=== PATIENT | female | born 1965 | race Hispanic/Latino ===

== ENCOUNTER 2020-10-22 18:35 | Inpatient (IN) | payer OTHER, SELFPAY ==
[2020-10-22 19:05] LABS: #Basophils 0.1 10x3/uL (0.0-0.2); #Eosinphils 0.1 10x3/uL (0.0-0.5); #Monocytes 0.7 10x3/uL (0.0-1.1); %Eosinophils 1.5 % (0.0-6.0); %Lymphocytes 31.9 % (18.0-47.0); %Monocytes 9.2 % (0.0-10.0); %Neutrophils 56.3 % (40.0-75.0); Hemoglobin 14.2 g/dL (12.0-15.5); Mean Corpuscular HGB CONC 33.3 g/dL (32.0-36.0); Mean Corpuscular Hemoglobin 30.7 pg (27.0-33.0); Mean Platelet Volume 9.9 fl (7.4-10.4); Platelet Count 159 10x3/uL (150-450); Red Blood Cell (RBC) Count 4.63 10x6/uL (3.90-5.03); White Blood Cell (WBC) Count 7.1 10x3/uL (3.5-10.5)
[2020-10-22 19:16] LABS: ALT (SGPT) 136 U/L (8-55); AST (SGOT) 209 U/L (5-34); Albumin 3.6 g/dL (3.5-5.0); Alkaline Phosphatase 183 U/L (40-110); Anion Gap 11 mmol/L (10-20); BUN (Urea Nitrogen) 7 mg/dL (9.8-20.1); Bilirubin, Total 0.5 mg/dL (0.2-1.2); CK (CPK) 66 U/L (29-168); Calc. Creatinine Clearance 0 mL/min (70-130); Calcium 9.2 mg/dL (7.8-10.44); Carbon Dioxide 24 mmol/L (22-29); Chloride 104 mmol/L (98-107); Globulin 4.3 g/dL (2.4-3.5); Glucose 165 mg/dL (70-105); Lipase 43 U/L (8-78); Potassium 4.1 mmol/L (3.5-5.1); Protein, Total 7.9 g/dL (6.0-8.3); Sodium 135 mmol/L (136-145)
[2020-10-22] MEDS ORDERED: Acetaminophen 500 MG TAB ONE (19:55)
[2020-10-22] MEDS ORDERED: Dexamethasone 10 MG/ML VIAL ONE (22:10)
[2020-10-22] MEDS ORDERED: Acetaminophen 325 MG TAB PO PRN (22:20)
[2020-10-22] MEDS ORDERED: Dextrose 5% in Water 1,000 ML IV PRN (22:20)
[2020-10-22] MEDS ORDERED: Senokot S 8.6-50 MG TAB PO PRN (22:20)
[2020-10-22] MEDS ORDERED: Guaifenesin DM 100-10/5 ML UDCUP PO PRN (22:20)
[2020-10-22] MEDS ORDERED: Calcium Carbonate 500 MG ChewTAB PO PRN (22:20)
[2020-10-22] MEDS ORDERED: Dextrose 50% Abboject 50 ML SYRINGE SLOW IVP PRN (22:20)
[2020-10-22] MEDS ORDERED: Ondansetron PF 4 MG/2 ML Vial IVP PRN (22:20)
[2020-10-22] MEDS ORDERED: Ventolin HFA Inhaler 60 PUFF INHALER INH PRN (22:28)
[2020-10-23 00:41] VITALS: BMI 33.3
[2020-10-23 06:26] LABS: #Monocytes 0.1 10x3/uL (0.0-1.1); #Neutrophils 4.1 10x3/uL (1.5-8.4); %Basophils 0.5 % (0.0-2.0); %Eosinophils 0.2 % (0.0-6.0); %Lymphocytes 31.2 % (18.0-47.0); %Monocytes 1.5 % (0.0-10.0); %Neutrophils 66.4 % (40.0-75.0); Hemoglobin 14.6 g/dL (12.0-15.5); Mean Corpuscular Hemoglobin 30.8 pg (27.0-33.0); Mean Corpuscular Volume 93.5 fl (81.6-98.3); Mean Platelet Volume 10.5 fl (7.4-10.4); Platelet Count 153 10x3/uL (150-450); Red Blood Cell (RBC) Count 4.74 10x6/uL (3.90-5.03); White Blood Cell (WBC) Count 6.2 10x3/uL (3.5-10.5)
[2020-10-23 06:49] LABS: ALT (SGPT) 155 U/L (8-55); AST (SGOT) 221 U/L (5-34); Albumin 3.6 g/dL (3.5-5.0); Alkaline Phosphatase 182 U/L (40-110); Anion Gap 12 mmol/L (10-20); BUN (Urea Nitrogen) 9 mg/dL (9.8-20.1); Bilirubin, Total 0.5 mg/dL (0.2-1.2); CK (CPK) 53 U/L (29-168); CRP (Inflammatory) 2.07 mg/dL (= or < 0.5); Calc. Creatinine Clearance 120 mL/min (70-130); Calcium 9.1 mg/dL (7.8-10.44); Carbon Dioxide 24 mmol/L (22-29); Cardiac Risk 3.3 (Less than 4.5); Chloride 107 mmol/L (98-107); Cholesterol 152 mg/dl (< 200 Desired); Glucose 188 mg/dL (70-105); HDL Cholesterol 46 mg/dL (>60 Neg Risk); LDL Cholesterol, Calculated 94 mg/dL; Potassium 4.6 mmol/L (3.5-5.1); Protein, Total 8.6 g/dL (6.0-8.3); Sodium 138 mmol/L (136-145); Triglycerides 61 mg/dL (Less than 150)
[2020-10-23] MEDS ORDERED: Zinc Gluconate 50 MG TAB PO SCH (09:00)
[2020-10-23] MEDS ORDERED: Ascorbic Acid 500 mg Chewable Tablet PO SCH (09:00)
[2020-10-23] MEDS ORDERED: Cholecalciferol (Vitamin D3) 400 UNITS TAB PO SCH (09:00)
[2020-10-23] MEDS ORDERED: Enoxaparin Sodium 40 MG/0.4 ML SYRINGE SC SCH (09:00)
[2020-10-23] MEDS: Lisinopril 10 MG TAB PO SCH (09:47)
[2020-10-23] MEDS: Amitriptyline HCl 25 MG TAB PO SCH (09:47)
[2020-10-23] MEDS: Aspirin 81 mg Enteric Coated Tablet PO SCH (09:47)
[2020-10-23] MEDS: PARoxetine 20 MG TAB PO SCH (09:47)
[2020-10-23] MEDS: busPIRone HCl 15 MG TAB PO SCH ×2 (09:47→22:01)
[2020-10-23] MEDS: metFORMIN 500 MG TAB PO SCH ×2 (09:47→17:24)
[2020-10-23 09:58] LABS: Ferritin 363.85 ng/mL (10-291)
[2020-10-23 10:01] LABS: Hep B Surf Ag Non-Reactive S/CO (NonReactive)
[2020-10-23 10:03] LABS: HBSAg Index 0.17 S/CO (0-0.99)
[2020-10-23 11:13] LABS: Hemoglobin A1c 6.7 % (4.0-6.0)
[2020-10-23 15:28] LABS: HBCM Index 0.06 S/CO (0-0.79); Hep A IgM AB Non-Reactive (NonReactive); Hep A IgM S/CO 0.34 S/CO (0-0.79); Hep C IgG Ab Non-Reactive (NonReactive); Hep C Index 0.11 S/CO (0-0.79); Hepatitis B Core IgM Abs Non-Reactive (NonReactive)
[2020-10-23] MEDS: Dexamethasone 4 mg/ml Vial SLOW IVP SCH (22:01)
[2020-10-24] MEDS ORDERED: Calcium Carbonate 500 MG ChewTAB PO PRN (05:38)
[2020-10-24 06:39] LABS: #Monocytes 0.3 10x3/uL (0.0-1.1); #Neutrophils 6.4 10x3/uL (1.5-8.4); %Basophils 0.1 % (0.0-2.0); %Lymphocytes 25.2 % (18.0-47.0); %Monocytes 3.4 % (0.0-10.0); Hemoglobin 13.1 g/dL (12.0-15.5); Mean Corpuscular HGB CONC 32.4 g/dL (32.0-36.0); Mean Corpuscular Hemoglobin 30.2 pg (27.0-33.0); Mean Corpuscular Volume 93.1 fl (81.6-98.3); Mean Platelet Volume 11.1 fl (7.4-10.4); Platelet Count 155 10x3/uL (150-450); Red Blood Cell (RBC) Count 4.34 10x6/uL (3.90-5.03)
[2020-10-24 06:44] LABS: ALT (SGPT) 99 U/L (8-55); AST (SGOT) 96 U/L (5-34); Albumin 3.3 g/dL (3.5-5.0); Alkaline Phosphatase 143 U/L (40-110); Anion Gap 10 mmol/L (10-20); BUN (Urea Nitrogen) 8 mg/dL (9.8-20.1); Bilirubin, Total 0.3 mg/dL (0.2-1.2); Calc. Creatinine Clearance 134 mL/min (70-130); Calcium 8.4 mg/dL (7.8-10.44); Carbon Dioxide 24 mmol/L (22-29); Chloride 109 mmol/L (98-107); Globulin 4.3 g/dL (2.4-3.5); Glucose 192 mg/dL (70-105); Potassium 4.4 mmol/L (3.5-5.1); Protein, Total 7.6 g/dL (6.0-8.3); Sodium 139 mmol/L (136-145)
[2020-10-24] MEDS: Enoxaparin Sodium 40 MG/0.4 ML SYRINGE SC SCH (09:04)
[2020-10-24] MEDS: Amitriptyline HCl 25 MG TAB PO SCH (09:04)
[2020-10-24] MEDS: metFORMIN 500 MG TAB PO SCH ×2 (09:04→17:40)
[2020-10-24] MEDS: PARoxetine 20 MG TAB PO SCH (09:04)
[2020-10-24] MEDS: Lisinopril 10 MG TAB PO SCH (09:04)
[2020-10-24] MEDS: Aspirin 81 mg Enteric Coated Tablet PO SCH (09:04)
[2020-10-24] MEDS: busPIRone HCl 15 MG TAB PO SCH (09:04)
[2020-10-24] MEDS: HumaLOG 300 UNITS/3 ML VIAL SC PRN (18:14)
[2020-10-24] MEDS: Dexamethasone 4 mg/ml Vial SLOW IVP SCH (20:45)
[2020-10-24] MEDS: busPIRone HCl 5 MG TAB PO SCH (20:57)
[2020-10-25] MEDS: diphenhydrAMINE 25 MG CAP PO PRN ×2 (00:45→21:50)
[2020-10-25] MEDS: HumaLOG 300 UNITS/3 ML VIAL SC PRN ×2 (06:00→17:54)
[2020-10-25] MEDS: Lisinopril 10 MG TAB PO SCH (07:08)
[2020-10-25] MEDS: Aspirin 81 mg Enteric Coated Tablet PO SCH (07:08)
[2020-10-25] MEDS: PARoxetine 20 MG TAB PO SCH (07:08)
[2020-10-25] MEDS: Enoxaparin Sodium 40 MG/0.4 ML SYRINGE SC SCH (07:09)
[2020-10-25] MEDS: busPIRone HCl 5 MG TAB PO SCH ×2 (07:09→20:07)
[2020-10-25] MEDS: Amitriptyline HCl 25 MG TAB PO SCH (07:09)
[2020-10-25] MEDS: metFORMIN 500 MG TAB PO SCH ×2 (07:16→16:28)
[2020-10-25 09:04] LABS: #Monocytes 0.4 10x3/uL (0.0-1.1); #Neutrophils 7.3 10x3/uL (1.5-8.4); %Basophils 0.2 % (0.0-2.0); %Lymphocytes 24.8 % (18.0-47.0); %Monocytes 3.9 % (0.0-10.0); %Neutrophils 70.7 % (40.0-75.0); Hemoglobin 14.1 g/dL (12.0-15.5); Mean Corpuscular HGB CONC 32.5 g/dL (32.0-36.0); Mean Corpuscular Hemoglobin 30.3 pg (27.0-33.0); Mean Corpuscular Volume 93.3 fl (81.6-98.3); Mean Platelet Volume 10.4 fl (7.4-10.4); Platelet Count 171 10x3/uL (150-450); RBC Distribution Width 15.2 % (11.5-14.5); Red Blood Cell (RBC) Count 4.65 10x6/uL (3.90-5.03); White Blood Cell (WBC) Count 10.4 10x3/uL (3.5-10.5)
[2020-10-25 09:21] LABS: ALT (SGPT) 83 U/L (8-55); AST (SGOT) 59 U/L (5-34); Albumin 3.5 g/dL (3.5-5.0); Alkaline Phosphatase 144 U/L (40-110); Anion Gap 12 mmol/L (10-20); BUN (Urea Nitrogen) 10 mg/dL (9.8-20.1); Bilirubin, Total 0.3 mg/dL (0.2-1.2); Calc. Creatinine Clearance 143 mL/min (70-130); Calcium 8.4 mg/dL (7.8-10.44); Carbon Dioxide 25 mmol/L (22-29); Chloride 106 mmol/L (98-107); Globulin 4.7 g/dL (2.4-3.5); Glucose 138 mg/dL (70-105); Potassium 4.1 mmol/L (3.5-5.1); Protein, Total 8.2 g/dL (6.0-8.3); Sodium 139 mmol/L (136-145)
[2020-10-25] MEDS: Dexamethasone 4 mg/ml Vial SLOW IVP SCH (20:08)
[2020-10-26 07:16] LABS: #Monocytes 0.3 10x3/uL (0.0-1.1); #Neutrophils 6.3 10x3/uL (1.5-8.4); %Basophils 0.1 % (0.0-2.0); %Lymphocytes 28.1 % (18.0-47.0); %Neutrophils 68.5 % (40.0-75.0); Hemoglobin 13.4 g/dL (12.0-15.5); Mean Corpuscular Hemoglobin 30.5 pg (27.0-33.0); Mean Corpuscular Volume 92.5 fl (81.6-98.3); Mean Platelet Volume 10.8 fl (7.4-10.4); Platelet Count 162 10x3/uL (150-450); RBC Distribution Width 14.8 % (11.5-14.5); Red Blood Cell (RBC) Count 4.39 10x6/uL (3.90-5.03); White Blood Cell (WBC) Count 9.1 10x3/uL (3.5-10.5)
[2020-10-26 07:49] LABS: ALT (SGPT) 74 U/L (8-55); AST (SGOT) 57 U/L (5-34); Albumin 3.2 g/dL (3.5-5.0); Alkaline Phosphatase 147 U/L (40-110); Anion Gap 12 mmol/L (10-20); BUN (Urea Nitrogen) 12 mg/dL (9.8-20.1); Bilirubin, Total 0.4 mg/dL (0.2-1.2); Calc. Creatinine Clearance 139 mL/min (70-130); Calcium 8.2 mg/dL (7.8-10.44); Carbon Dioxide 26 mmol/L (22-29); Chloride 105 mmol/L (98-107); Globulin 4.3 g/dL (2.4-3.5); Glucose 144 mg/dL (70-105); Potassium 3.9 mmol/L (3.5-5.1); Protein, Total 7.5 g/dL (6.0-8.3); Sodium 139 mmol/L (136-145)
[2020-10-26] MEDS: metFORMIN 500 MG TAB PO SCH ×2 (08:39→19:37)
[2020-10-26] MEDS: Aspirin 81 mg Enteric Coated Tablet PO SCH (08:40)
[2020-10-26] MEDS: Amitriptyline HCl 25 MG TAB PO SCH (08:40)
[2020-10-26] MEDS: busPIRone HCl 5 MG TAB PO SCH ×2 (08:40→21:14)
[2020-10-26] MEDS: Enoxaparin Sodium 40 MG/0.4 ML SYRINGE SC SCH (08:40)
[2020-10-26] MEDS: Lisinopril 10 MG TAB PO SCH (08:40)
[2020-10-26] MEDS: PARoxetine 20 MG TAB PO SCH (08:40)
[2020-10-26 10:32] LABS: Thyroid Stimulating Hormone 0.5104 uIU/mL (0.35-4.94)
[2020-10-26] MEDS: diphenhydrAMINE 25 MG CAP PO PRN (21:14)
[2020-10-26] MEDS: Dexamethasone 4 mg/ml Vial SLOW IVP SCH (21:15)
[2020-10-27] MEDS: PARoxetine 20 MG TAB PO SCH (08:21)
[2020-10-27] MEDS: busPIRone HCl 5 MG TAB PO SCH (08:21)
[2020-10-27] MEDS: Aspirin 81 mg Enteric Coated Tablet PO SCH (08:21)
[2020-10-27] MEDS: metFORMIN 500 MG TAB PO SCH (08:21)
[2020-10-27] MEDS: Enoxaparin Sodium 40 MG/0.4 ML SYRINGE SC SCH (08:21)
[2020-10-27] MEDS: Lisinopril 10 MG TAB PO SCH (08:21)
[2020-10-27] MEDS: Amitriptyline HCl 25 MG TAB PO SCH (08:21)
[2020-10-27] MEDS ORDERED: Cholecalciferol (Vitamin D3) 400 UNITS TAB PO SCH (11:15)
[2020-10-27 12:32] VITALS: BP 137/82; TEMP 98.4
[2020-10-28] MEDS ORDERED: Cholecalciferol (Vitamin D3) 400 UNITS TAB PO SCH (09:00)
== END 2020-10-27 14:36 | disposition home or self-care (01) | DRG 177 ==
LOC: CSHERS 18:35 → CSHTELE 23:39
PROVIDERS: ADMIT Student in an Organized Health Care Education/Training Program; ATTEND Internal Medicine
DX: U07.1 COVID-19 (principal); J96.01 Acute respiratory failure with hypoxia; E55.9 Vitamin D deficiency, unspecified; R74.01 Elevation of levels of liver transaminase levels; K74.60 Unspecified cirrhosis of liver; F32.9 Major depressive disorder, single episode, unspecified; E66.9 Obesity, unspecified; Z68.33 Body mass index [BMI] 33.0-33.9, adult; I12.9 Hypertensive chronic kidney disease with stage 1 through stage 4 chronic kidney disease, or unspecified chronic kidney disease; N18.2 Chronic kidney disease, stage 2 (mild); R41.3 Other amnesia; E11.65 Type 2 diabetes mellitus with hyperglycemia
CPT/HCPCS: 36415; 36416; 36430; 71045; 76705; 80053; 80061; 80074; 82306; 82550; 82607; 82728; 82746; 83036; 83690; 83880; 84443; 84484; 85025; 85379; 86140; 86850; 86900; 86901; 93005; 94760; 96374; J1100; J1650; J1815; Q0163

== ENCOUNTER 2023-07-10 14:26 | Emergency (ER) | payer SELFPAY ==
[~2023-07-10 14:26] MED LIST: Iopamidol 300 61% 100 ML VIAL FS ONE
[2023-07-10] MEDS ORDERED: Acetaminophen 325 MG TAB ONE (15:01)
[2023-07-10 15:17] LABS: #Eosinphils 0.1 10x3/uL (0.0-0.5); #Monocytes 0.2 10x3/uL (0.0-1.1); #Neutrophils 1.8 10x3/uL (1.5-8.4); %Basophils 0.7 % (0.0-2.0); %Monocytes 4.2 % (0.0-10.0); %Neutrophils 44.1 % (40.0-75.0); Hemoglobin 15.2 g/dL (12.0-15.5); Mean Corpuscular HGB CONC 33.8 g/dL (32.0-36.0); Mean Corpuscular Hemoglobin 31.3 pg (27.0-33.0); Mean Corpuscular Volume 92.6 fl (81.6-98.3); Mean Platelet Volume 11.3 fl (7.4-10.4); Platelet Count 92 10x3/uL (150-450); RBC Distribution Width 14.6 % (11.5-14.5); Red Blood Cell (RBC) Count 4.86 10x6/uL (3.90-5.03); White Blood Cell (WBC) Count 4.1 10x3/uL (3.5-10.5)
[2023-07-10 15:22] LABS: ALT (SGPT) 80 U/L (8-55); AST (SGOT) 107 U/L (5-34); Albumin 3.4 g/dL (3.5-5.0); Alkaline Phosphatase 201 U/L (40-110); Anion Gap 12 mmol/L (10-20); BUN (Urea Nitrogen) 7 mg/dL (9.8-20.1); Bilirubin, Total 1.4 mg/dL (0.2-1.2); Calc. Creatinine Clearance 0 mL/min (70-130); Calcium 8.6 mg/dL (7.8-10.44); Carbon Dioxide 22 mmol/L (22-29); Chloride 107 mmol/L (98-107); Estimated GFR 97; Globulin 4.4 g/dL (2.4-3.5); Glucose 195 mg/dL (70-105); Potassium 3.4 mmol/L (3.5-5.1); Protein, Total 7.8 g/dL (6.0-8.3); Sodium 138 mmol/L (136-145)
[2023-07-10 15:23] LABS: Lipase 98 U/L (8-78); Magnesium 1.8 mg/dL (1.6-2.6)
[2023-07-10 15:29] LABS: Troponin I Less than 0.010 ng/mL (< 0.028)
[2023-07-10 15:44] LABS: Bilirubin Neg (Negative); Blood, Urine Negative (Negative); Clarity Slightly Cloudy (Clear); Glucose, Urine (Dipstick) 100 mg/dL (Negative); Ketone, Urine Negative (Negative); Leukocyte Negative (Negative); Nitrite Negative (Negative); Protein, Urine (Dipstick) 15 mg/dl (Neg-Trace); Specific Gravity, Urine 1.015 (1.005-1.030); Urobilinogen Normal mg/dL (Less than 2)
[2023-07-10 16:03] LABS: SARS-CoV-2 NAA Rapid Test Not Detected (NotDetected)
[2023-07-10 16:10] LABS: CAUTI Indications for Culture Pelvic or flank pain; RBC/HPF None Seen HPF (0-3); WBC/HPF 0-3 HPF (0-3)
[2023-07-10 16:11] LABS: Bacteria/HPF 1+ HPF (None Seen); Transitional Epithelial 0-3 HPF (None Seen)
[2023-07-10 16:12] LABS: Urine Culture Reflex No No
[2023-07-10] MEDS ORDERED: diphenhydrAMINE 50 MG/ML VIAL ONE (16:37)
[2023-07-10] MEDS ORDERED: Metoclopramide HCl 10 MG/2 ML VIAL ONE (16:37)
[2023-07-10] MEDS ORDERED: Ketorolac Tromethamine 30 MG/ML VIAL ONE (16:38)
[2023-07-10 18:12] LABS: Platelet Adequacy Comment Appears Decreased
== END 2023-07-10 17:45 | disposition home or self-care (01) ==
LOC: CSHERS 14:26
DX: R07.9 Chest pain, unspecified (principal); R51.9 Headache, unspecified; R53.1 Weakness; I10 Essential (primary) hypertension; E11.9 Type 2 diabetes mellitus without complications
CPT/HCPCS: 36416; 71045; 74177; 80053; 81001; 83690; 83735; 84443; 84484; 85025; 93005; 96361; 96374; 96375; J1200; J1885; J2765; Q9967